=== PATIENT | female | born 1995 ===

== ENCOUNTER → 2018-04-09 | Outpatient (CLI) | payer BC ==
[~2018-04-09] MED LIST: LEVFLO500 PO; WOMEN'S DAILY1 EAC1 PO; Zofran Odt4 MG SL
== END ==
LOC: OLS 12:33 → LAB SHORT 12:33
PROVIDERS: Obstetrics & Gynecology Gynecology
DX: Z12.4 Encounter for screening for malignant neoplasm of cervix (principal)
CPT/HCPCS: 87624; G0123

== ENCOUNTER → 2018-04-09 | Outpatient (CLI) | payer BC ==
[2018-04-13 02:11] LABS: CHLAMYDIA TRACHOMATIS, NAA Negative (Negative); NEISSERIA GONORRHOEAE, NAA Negative (Negative)
== END ==
LOC: OLS 12:38 → LAB SHORT 12:38
PROVIDERS: Obstetrics & Gynecology Gynecology
DX: Z11.3 Encounter for screening for infections with a predominantly sexual mode of transmission (principal)
CPT/HCPCS: 87491; 87591